=== PATIENT | male | born 1995 | race Caucasian/White ===

== ENCOUNTER 2017-12-21 11:08 | Emergency (ER) | payer OTHER ==
[~2017-12-21] VITALS: Ht 180.3 cm; Wt 101.8 kg
[2017-12-21 11:12] VITALS: BP 119/71; PULSE 73; TEMP 98.6
[2017-12-21] MEDS ORDERED: BACTRIM DS 8001 TAB PO (11:43)
== END 2017-12-21 11:55 | disposition home or self-care (01) ==
LOC: COL.ER 11:08
DX: H05.012 Cellulitis of left orbit (principal); F43.10 Post-traumatic stress disorder, unspecified